=== PATIENT | female | born 1990 | race Caucasian/White ===

== ENCOUNTER 2016-10-14 23:44 | Emergency (ER) | payer OTHER ==
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
[~2016-10-14 23:44] MED LIST: AUGMENTIN PO; CLEOCIN PO; NO MEDICATIONS; PHENERGAN PO; PROZAC PO; ULTRAM PO
== END 2016-10-15 00:40 | disposition home or self-care (01) ==
LOC: SED 23:44
DX: S16.1XXA Strain of muscle, fascia and tendon at neck level, initial encounter (principal); S29.012A Strain of muscle and tendon of back wall of thorax, initial encounter; S39.012A Strain of muscle, fascia and tendon of lower back, initial encounter; F17.200 Nicotine dependence, unspecified, uncomplicated; F32.9 Major depressive disorder, single episode, unspecified; Z88.1 Allergy status to other antibiotic agents; V49.40XA Driver injured in collision with unspecified motor vehicles in traffic accident, initial encounter; Y92.410 Unspecified street and highway as the place of occurrence of the external cause
CPT/HCPCS: 72040; 72072; 72100; 99284